=== PATIENT | female | born 1960 | race Caucasian/White ===

== ENCOUNTER 2024-02-02 12:51 | Outpatient (CLI) | payer BC ==
[2024-02-02 14:50] LABS: Bilirubin Negative (Negative); Blood, Urine 3+ (Negative); Clarity Extra Turbid (Clear); Glucose, Urine (Dipstick) Normal (Negative); Ketone, Urine Negative (Negative); Leukocyte 250 Leu/uL (Negative); Nitrite Negative (Negative); Protein, Urine (Dipstick) 200 mg/dL (Neg-Trace); RBC/HPF Greater than 50 HPF (0-3); Specific Gravity, Urine 1.021 (1.002-1.036); Squamous Epithelial 0-3 HPF (0-3); Urobilinogen Normal mg/dL (Less than 2); WBC/HPF Greater than 50 HPF (0-3); Yeast-Budding 2+ HPF (None Seen); pH, Urine 5.5 (5.0-9.0)
[2024-02-02 14:56] LABS: Bacteria/HPF 1+ HPF (None Seen)
== END 2024-02-02 12:52 | disposition home or self-care (01) ==
LOC: LABBT 12:51
PROVIDERS: ATTEND Urology
DX: Z01.818 Encounter for other preprocedural examination (principal); N20.1 Calculus of ureter
CPT/HCPCS: 81001; 87086; 93005; 93010

== ENCOUNTER 2024-02-06 08:55 | Day surgery (SDC) | payer BC ==
[2024-02-02 13:20] VITALS: BMI 27.8
[2024-02-06] MEDS ORDERED: PROPOFOL 20 ML ONE (09:21)
[2024-02-06] MEDS ORDERED: Lidocaine 2% PF 5 ML VIAL ONE (09:21)
[2024-02-06] MEDS ORDERED: cefTRIAXone (ROCEPHIN) 1 GM VIAL ONE (10:08)
[2024-02-06] MEDS ORDERED: Sodium Chloride 0.9% 100 ML ONE (10:09)
[2024-02-06 10:38] LABS: Anion Gap 17 mmol/L (10-20); BUN (Urea Nitrogen) 13 mg/dL (9.8-20.1); Calc. Creatinine Clearance 89 mL/min (70-130); Calcium 9.6 mg/dL (7.8-10.44); Carbon Dioxide 21 mmol/L (23-31); Chloride 107 mmol/L (98-107); Estimated GFR 96; Glucose 105 mg/dL (80-115); Potassium 4.1 mmol/L (3.5-5.1); Sodium 141 mmol/L (136-145)
[2024-02-06] MEDS ORDERED: fentaNYL PF 100 MCG/2 ML SYRINGE ONE (10:44)
[2024-02-06] MEDS ORDERED: Dexamethasone 4 mg/ml Vial ONE (11:13)
[2024-02-06] MEDS ORDERED: Ondansetron PF 4 MG/2 ML Vial ONE (11:13)
[2024-02-06] MEDS ORDERED: Glycopyrrolate 0.2 MG/ML 5 ML SYRINGE ONE (11:24)
[2024-02-06] MEDS ORDERED: ePHEDrine Sulfate 50 MG/10 ML VIAL ONE (11:56)
[2024-02-06] MEDS ORDERED: Phenazopyridine HCl 100 MG TAB ONE (13:01)
[2024-02-06] MEDS ORDERED: Oxybutynin 5 MG TAB ONE (13:01)
[2024-02-06] MEDS ORDERED: Promethazine HCl 25 MG/ML VIAL ONE (13:27)
[2024-02-06] MEDS ORDERED: HYDROcodone/Acetaminophen 5/325 mg Tablet ONE (15:49)
== END 2024-02-06 19:17 | disposition home or self-care (01) ==
LOC: SDC 08:55 → EDBD 13:00 → SDC 19:17
PROVIDERS: ATTEND Urology
PROC: 0TF68ZZ Fragmentation in Right Ureter, Via Natural or Artificial Opening Endoscopic (ICD-10-PCS; principal; 2024-02-06)
PROC: 0T788DZ Dilation of Bilateral Ureters with Intraluminal Device, Via Natural or Artificial Opening Endoscopic (ICD-10-PCS; principal; 2024-02-06)
DX: N20.1 Calculus of ureter (principal); I10 Essential (primary) hypertension; E78.5 Hyperlipidemia, unspecified; C18.9 Malignant neoplasm of colon, unspecified; G43.909 Migraine, unspecified, not intractable, without status migrainosus; F41.9 Anxiety disorder, unspecified; F32.A Depression, unspecified; G62.9 Polyneuropathy, unspecified; Z90.710 Acquired absence of both cervix and uterus
CPT/HCPCS: 74420; 80048; 82365; 88300; C1747; C1769; C2617; J0696; J1100; J2405; J2550; J2704

== ENCOUNTER 2024-05-18 11:59 | Outpatient (CLI) | payer BC | END 2024-05-18 12:00 | disposition home or self-care (01) | LOC: BICULT 11:59 | PROVIDERS: ATTEND Urology | DX: N20.0 Calculus of kidney (principal) | CPT/HCPCS: 76770 ==